=== PATIENT | male | born 1950 | race Caucasian/White ===

== ENCOUNTER 2024-02-09 11:01 | Emergency (ER) | payer OTHER, MEDICARE ==
[~2024-02-09] VITALS: Ht 180.3 cm; Wt 108.9 kg
[~2024-02-09 11:01] MED LIST: AMIO200T44 PO; APIX5TAB PO; CEFD300C3 PO; METO25 PO
[2024-02-09 11:51] LABS: BASOPHILS # (AUTO) 0.03 K/uL (0.00-0.20); BASOPHILS % (AUTO) 0.4 % (0.0-5.0); EOSINOPHILS # (AUTO) 0.16 K/uL (0.00-0.70); EOSINOPHILS % (AUTO) 1.9 % (0.0-8.0); HEMATOCRIT 37.6 % (42-54); LYMPHOCYTES # (AUTO) 0.8 K/uL (1.0-4.8); LYMPHOCYTES % (AUTO) 9.6 % (21.0-51.0); MEAN CORPUSCULAR HEMOGLOBIN 32.8 pg (27.0-33.0); MEAN CORPUSCULAR HGB CONC 34.3 g/dL (32.0-36.0); MEAN CORPUSCULAR VOLUME 95.7 fL (79-99); MONOCYTES # (AUTO) 0.6 K/uL (0.1-1.0); MONOCYTES % (AUTO) 6.7 % (3.0-13.0); NEUTROPHILS # (AUTO) 6.6 K/uL (1.8-7.7); NEUTROPHILS % (AUTO) 80.2 % (40.0-77.0); PLATELET COUNT (AUTO) 399 K/uL (130-400); RED BLOOD CELL COUNT(AUTO) 3.93 MIL/uL (4.50-6.20); RED CELL DISTRIBUTION WIDTH 13.3 % (11.0-15.5); WHITE BLOOD COUNT (AUTO) 8.2 K/uL (4.8-10.8)
[2024-02-09 11:58] LABS: CREATININE 1.4 mg/dL (0.5-1.3); POTASSIUM 4.4 mmol/L (3.5-5.1)
--- NOTE | 2024-02-09 12:23 | EKG ---
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
[2024-02-09 12:42] LABS: B-TYPE NATRIURETIC PEPTIDE 529 pg/mL (0-100)
--- NOTE | 2024-02-09 12:47 | HMCIMG ---
CHEST 1VW REASON: sob COMPARISON: 02/02/2024 FINDINGS: Single view of the chest was obtained. Lungs are clear. Heart size is normal. There is no pulmonary vascular congestion. Mediastinum and bony thorax appear unremarkable. IMPRESSION: 1. Normal single view chest x-ray.
[2024-02-09 13:25] LABS: ADD UA MICROSCOPIC YES; APPEARANCE,URINE CLEAR (CLEAR); BILIRUBIN,URINE NEGATIVE (NEGATIVE); COLOR,URINE YELLOW (YELLOW); GLUCOSE, URINE (UA) NEGATIVE (NEGATIVE); KETONES,URINE NEGATIVE (NEGATIVE); LEUKOCYTE ESTERASE ,URINE NEGATIVE Leu/uL (NEGATIVE); NITRATE,URINE NEGATIVE (NEGATIVE); PH,URINE 5.5 (5.0-8.0); PROTEIN,URINE NEGATIVE (NEGATIVE); UROBILINOGEN,URINE 0.2 mg/dL (0.2-1.0)
[2024-02-09 13:28] LABS: MUCUS,URINE RARE LPF (None Seen)
--- NOTE | 2024-02-09 13:40 | ERN ---
General Chief Complaint: Palpitations Stated Complaint: PALPITATIONS Time Seen by MD: 11:03 Time Seen by Midlevel: 11:03 Source: patient History of Present Illness Initial Comments Patient is a 73-year-old male with a past medical history of atrial fibrillation with rapid ventricular response presents to the emergency department for evaluation of palpitations. Patient reports being admitted to our hospital approximately a week ago and was found to have AFib RVR. He was discharged home on metoprolol, and Eliquis. This morning he reports feeling palpitations so he decided to report to the ER for further evaluation Allergies: Coded Allergies: [id number] Reductase Inhibitor (Unverified Allergy, Mild, RASH, 02/05/24) Itching and rash as per pt diltiazem (Unverified Allergy, Mild, HIVES, 02/03/24) Home Meds Active Scripts Cefdinir (Cefdinir) 300 Mg Capsule, 1 CAP PO BID for 7 Days, #14 CAP 0 Refills Prov:MELLISSA MOORE MD 02/06/24 Metoprolol Tartrate (Lopressor) 25 Mg Tab, 25 MG PO BID for 30 Days, #60 TAB 1 Refill Prov:MELLISSA MOORE MD 02/06/24 Apixaban (Eliquis) 5 Mg Tablet, 5 MG PO BID for 30 Days, #60 TAB 1 Refill Prov:MELLISSA MOORE MD 02/06/24 Amiodarone HCl (Pacerone) 200 Mg Tablet, 200 MG PO BID for 30 Days, #60 TAB 1 Refill Prov:MELLISSA MOORE MD 02/06/24 Past Medical History Past Medical History: Heart Disease Medical History Other: SVT Past Surgical History: Tonsillectomy, Other Surgical History Other: HERNIA REPAIR ROS Dictation CONSTITUTIONAL: Negative except for HPI HEAD/FACE: Negative except for HPI EENT: Negative except for HPI RESPIRATORY: Negative except for HPI GASTROINTESTINAL/ABDOMINAL: Negative except for HPI GENITOURINARY: Negative except for HPI MUSCULOSKELETAL: Negative except for HPI INTEGUMENTARY: Negative except for HPI NEUROLOGICAL/PSYCH: Negative except for HPI HEMATOLOGIC/LYMPHATIC: Negative except for HPI All Systems Negative, Except as noted above. 13 point review of systems assessed and all negative except for above. Physical Exam Physical Exam Dictation Vital Signs reviewed General Appearance: Alert, oriented x 3, no acute distress, well developed, nourished. Head and Face: non-traumatic. Eyes: PERRL, pink conjunctivas, eyelid no trauma, anterior chamber with arcus senilis. Ears: Pinnas intact and no signs of trauma or erythema ear canals clear and no discharge TM no erythema Nose: No discharge, no bleeding. Oropharynx: Mouth normal, tongue pink, pharynx clear,no erythema, tonsils no exudates, no abscesses noted, mucous membrane moist Neck: Supple, non-tender, no thyromegaly, no masses, no JVD, no bruits Breast:Deferred Chest:No tenderness, no crepitus, no paradoxical movement, no retractions Lungs:Clear, well-ventilated, symmetric, no rales, no wheezing, no rhonchi, no stridor, good breath sounds bilaterally Heart: Regular rate, regular rhythm, no murmur, no gallops Vascular: no peripheral edema, Abdomen: Soft, positive bowel sounds, nondistended, no guarding, nontender, no rebound, no masses no hepatomegaly, no splenomegaly, no Teague's sign, no hernias. Rectal: Deferred Genital: Deferred Neurological: Normal speech, motor function intact, sensory function intact Musculoskeletal: Neck nontender, full range of motion, back nontender, full r kristina of motion, Extremities: nontender, full range of motion Skin: Color pink, dry, no turgor, no rash, no lacerations, no abrasions, no contusions. Lymphatic: Deferred Results Laboratory and Microbiology Lab and Micro Result Laboratory Tests Test 02/09/24 11:43 White Blood Count 8.2 K/uL (4.8-10.8) Red Blood Count 3.93 MIL/uL (4.50-6.20) L Hemoglobin 12.9 g/dL (14.0-18.0) L Hematocrit 37.6 % (42-54) L Mean Corpuscular Volume 95.7 fL (79-99) Mean Corpuscular Hemoglobin 32.8 pg (27.0-33.0) Mean Corpuscular Hemoglobin Concent 34.3 g/dL (32.0-36.0) Red Cell Distribution Width 13.3 % (11.0-15.5) Platelet Count 399 K/uL (130-400) Mean Platelet Volume 8.6 fL (7.5-10.5) Immature Granulocyte % (Auto) 1.2 % (0-1) H Neutrophils (%) (Auto) 80.2 % (40.0-77.0) H Lymphocytes (%) (Auto) 9.6 % (21.0-51.0) L Monocytes (%) (Auto) 6.7 % (3.0-13.0) Eosinophils (%) (Auto) 1.9 % (0.0-8.0) Basophils (%) (Auto) 0.4 % (0.0-5.0) Neutrophils # (Auto) 6.6 K/uL (1.8-7.7) Lymphocytes # (Auto) 0.8 K/uL (1.0-4.8) L Monocytes # (Auto) 0.6 K/uL (0.1-1.0) Eosinophils # (Auto) 0.16 K/uL (0.00-0.70) Basophils # (Auto) 0.03 K/uL (0.00-0.20) Absolute Immature Granulocyte (auto 0.10 K/uL (0-1) Nucleated Red Blood Cells 0.0 % (0.0-0.19) Urine Color YELLOW (YELLOW) Urine Appearance CLEAR (CLEAR) Urine pH 5.5 (5.0-8.0) Urine Specific [place] 1.016 (1.001-1.031) Urine Protein NEGATIVE mg/dL (NEGATIVE) Urine Glucose (UA) NEGATIVE mg/dL (NEGATIVE) Urine Ketones NEGATIVE mg/dL (NEGATIVE) Urine Occult Blood +- (TRACE) (NEGATIVE) H Urine Nitrate NEGATIVE (NEGATIVE) Urine Bilirubin NEGATIVE mg/dL (NEGATIVE) Urine Urobilinogen 0.2 mg/dL (0.2-1.0) Urine Leukocyte Esterase NEGATIVE Amrita/uL Urine RBC 2-5 /HPF (0-1) H Urine WBC 6-10 /HPF (0-1) H Urine Bacteria None /HPF (None Seen) Sodium Level 139 mmol/L (136-145) Potassium Level 4.4 mmol/L (3.5-5.1) Chloride Level 103 mmol/L (101-111) Carbon Dioxide Level 26 mmol/L (21-32) Blood Urea Nitrogen 25 mg/dL (7-18) H Creatinine 1.4 mg/dL (0.5-1.3) H Glomerular Filtration Rate Calc 53 mL/min (>90) Random Glucose 111 mg/dL (70-105) H Total Calcium 9.1 mg/dL (8.5-10.1) Total Creatine Kinase 40 U/L (21-232) # Troponin I High Sensitivity 11 ng/L (4-75) B-Type Natriuretic Peptide 529 pg/mL (0-100) H Labs Reviewed?: Yes EKG/XRAY/US/CT/MRI EKG Comment Date: February 09, 2024 Time: 10:59 a.m. Ventricular rate: 58 beats per minute IN interval: 158 QRS duration:98 QT/QTc: 439/432 EKG interpretation: Normal sinus rhythm with a ventricular rate of 58 beats per minute, no ST elevations, no bundle branch blocks Reviewed by ED Attending MDM MDM: Patient is a 73-year-old male with a past medical history of atrial fibrillation with rapid ventricular response presents to the emergency department for evaluation of palpitations. Patient reports being admitted to our hospital approximately a week ago and was found to have AFib RVR. He was discharged home on metoprolol, and Eliquis. This morning he reports feeling palpitations so he decided to report to the ER for further evaluation. On arrival he states the palpitations have completely resolved. Denies any chest pain, shortness for breath, or any other symptoms at this time. His initial vital signs are stable. When I saw him his heart rate was in the 50s. His initial EKG showed normal sinus rhythm with a ventricular rate of 50 beats per minute. There was no ST elevations or bundle branch blocks noted. His blood work today is unremarkable and improved from when he was in the hospital. His chemistries are stable. His urinalysis does not show any evidence of infection. His cardiac enzymes are negative. Patient is not actively having chest pain. I offered admission for further observation and management however he declines and would like to be discharged home. He has an appointment with his cardiol ogist in one week and plans to follow up with him. If he was to develop any new or worsening symptoms he was advised to report to the ER for further evaluation. Patient is agreeable with this plan and all questions have been answered Differential diagnosis: Acute coronary syndrome, tachyarrhythmia, atrial fibrillation There are no social concerns with this patient. Prescription drug management Prescriptions will include: None Medical management and examination interpretation discussions were had by me with other qualified healthcare professionals as indicated for the patient's care. ED Course Orders Procedure Category Date Status Time 12 Lead Ekg Tracing- EKG 02/09/24 Complete Technical 11:12 Cbc With Differential LAB 02/09/24 Complete 11:12 Basic Metabolic Panel LAB 02/09/24 Complete 11:12 B-Type Natriuretic LAB 02/09/24 Complete Peptide 11:12 Creatine Kinase, Total LAB 02/09/24 Complete 11:12 Troponin I High LAB 02/09/24 Complete Sensitivity 11:12 Chest 1vw RAD 02/09/24 Resulted 11:12 Urinalysis Profile LAB 02/09/24 Complete 13:14 Culture Urine BRINAA 02/09/24 Logged 13:29 Vital Signs Date Time Temp Pulse Resp B/P (MAP) Pulse Ox O2 Delivery O2 Flow Rate FiO2 02/09/24 13:10 98.1 52 16 96/63 98 Room Air* 0 21 02/09/24 12:06 99.0 54 16 96/61 100 Room Air* 0 21 02/09/24 11:11 97.9 57 16 101/64 96 Room Air [address] [address] IMAGING REPORT Signed PATIENT: ALON PIZARRO MR#: [id number] : 1950 SEX: M AGE: 73 LOCATION: [facility] ORDER 12 STATUS: [facility] REPORT#: [id number] SERVICE 1112 REASON: sob ORDERING PHYSICIAN: JOSÉ MIGUEL SANCHEZ PROCEDURE: CXR1VW - CHEST 1VW CHEST 1VW REASON: sob COMPARISON: 02/02/2024 FINDINGS: Single view of the chest was obtained. Lungs are clear. Heart size is normal. There is no pulmonary vascular congestion. Mediastinum and bony thorax appear unremarkable. IMPRESSION: 1. Normal single view chest x-ray. DICTATED BY: ALON MCELROY MD DATE: 02/09/241243 ELECTRONICALLY SIGNED BY: ALON MCELROY MD DATE: 02/09/241246 HEART Score Response (Comments) Value History: Moderate suspicion (+1) 1 EKG: Normal 0 Age: > 65yrs (+2) 2 Risk Factors: 1-2 risk factors (+1) 1 Initial Troponin: Normal limit (0) 0 HEART Score Risk: Mod Risk for MACE (4-6) Total 4 DX & DISP Disposition: Discharge Departure Impression: Primary Impression: Palpitations Condition: Stable Additional Instructions: Your blood work today is stable. Your cardiac enzymes are negative. Your EKG is normal. Your urinalysis does not show any evidence of infection. Please continue your home medications as prescribed. Follow up with logging specialist next week as scheduled. If you develop any new or worsening symptoms please report to the ER for further evaluation. Referrals: SELF,REFERRAL (PCP) Time of Disposition: 13:39 I have reviewed the case, and I agree with, Diagnosis and Plan I performed the substantive portion of the visit. I have reviewed and personally made and approve the management plan that is documented in the note by myself or the JCARLOS. I acknowledge for responsibility for the patient's management plan. JOSÉ MIGUEL SANCHEZ Feb 09, 2024 13:40
[2024-02-09 14:01] VITALS: BP 100/70; PULSE 80; RESP 16; TEMP 98; O2SAT 98
--- NOTE | 2024-02-09 21:18 | EKG ---
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
== END 2024-02-09 14:04 | disposition home or self-care (01) ==
LOC: EDH 11:01
DX: R00.2 Palpitations (principal); Z79.01 Long term (current) use of anticoagulants; Z88.8 Allergy status to other drugs, medicaments and biological substances; Z90.89 Acquired absence of other organs; Z98.890 Other specified postprocedural states
CPT/HCPCS: 36415; 71045; 80048; 81001; 82550; 83880; 84484; 85025; 87086; 93005; 99285